=== PATIENT | female | born 1975 | race African-American/Black ===

== ENCOUNTER 2020-10-18 13:30 | Emergency (ER) | payer OTHER ==
[~2020-10-18] VITALS: Ht 165.1 cm; Wt 86.2 kg
[2020-10-18] MEDS ORDERED: AMLODIPINE-OLM1 EAC2 (14:09)
[2020-10-18] MEDS ORDERED: DICLOFENAC POTA50 MG (14:10)
[2020-10-18] MEDS ORDERED: LORZONE375 MG (14:10)
== END 2020-10-18 18:23 | disposition home or self-care (01) ==
LOC: ER 13:30
DX: M50.31 Other cervical disc degeneration, high cervical region (principal); R11.2 Nausea with vomiting, unspecified